=== PATIENT | female | born 1935 | race Caucasian/White ===

== ENCOUNTER → 2016-06-06 | Outpatient (CLI) | payer MEDICARE, OTHER | LOC: OD 15:33 | PROVIDERS: ATTEND Internal Medicine | DX: I50.22 Chronic systolic (congestive) heart failure (principal) | CPT/HCPCS: 36415; 71020; 83880 ==

== ENCOUNTER → 2017-05-21 | Outpatient (CLI) | payer MEDICARE, OTHER | LOC: LAB 14:46 | PROVIDERS: ATTEND Physician Assistant | DX: M25.50 Pain in unspecified joint (principal) | CPT/HCPCS: 36415; 85652; 86140; 86430 ==

== ENCOUNTER 2017-06-23 19:21 | Emergency (ER) | payer MEDICARE, OTHER ==
--- NOTE | 2017-06-23 20:43 | ER Document Report ---
ED Medical Screen (RME) - General Chief Complaint: Chest Pain Stated Complaint: FALL/LEFT ARM INJURY,CHEST PAIN Time Seen by Provider: 06/23/17 20:39 Mode of Arrival: Wheelchair Information source: Patient Notes: 81-year-old female presented ED for complaint of pain to the left wrist right hand and right knee after she fell about 615 landing on her hands and knee. There is deformity to the left wrist with swelling and severe pain. She also has swelling to the right hand and pain and bruising to the right knee. She states that she is on oxycodone 20 mg for pain management and she took one at 815 tonight and it has not helped her pain at all. I have greeted and performed a rapid initial assessment of this patient. A comprehensive ED assessment and evaluation of the patient, analysis of test results and completion of medical decision making process will be conducted by an additional ED providers. TRAVEL OUTSIDE OF THE [place] IN LAST 30 DAYS: No - Related Data Allergies/Adverse Reactions: azithromycin [Azithromycin] Allergy (Verified 02/24/15 17:26) Swelling of the Eyes levofloxacin [Levofloxacin] Allergy (Verified 02/24/15 17:26) Swelling of the Eyes Past Medical History - Past Medical History Cardiac Medical History: Reports: Hx Atrial Fibrillation, Hx Congestive Heart Failure, Hx Hypertension Neurological Medical History: Reports: Hx Cerebrovascular Accident - July 2014 GI Medical History: Reports: Hx Gastroesophageal Reflux Disease Psychiatric Medical History: Reports: Hx Depression Past Surgical History: Reports: Hx Abdominal Surgery - endometrial cancer surgery, Hx Cardiac Surgery - hole in heart, pacemakerx2, Hx Gynecologic Surgery - ectopic , Hx Hysterectomy, Hx Orthopedic Surgery - Knee replacements x3, Hx Pacemaker - Immunizations Hx Diphtheria, Pertussis, Tetanus Vaccination: Yes Physical Exam - Vital signs Vitals: Temp Pulse Resp BP Pulse Ox 97.6 F 65 14 138/61 H 95 06/23/17 19:36 06/23/17 19:36 06/23/17 19:36 06/23/17 19:36 06/23/17 19:36 Course - Vital Signs Vital signs: Temp Pulse Resp BP Pulse Ox 97.6 F 65 14 138/61 H 95 06/23/17 19:36 06/23/17 19:36 06/23/17 19:36 06/23/17 19:36 06/23/17 19:36
--- NOTE | 2017-06-23 21:21 | RADIOLOGY REPORT (SQ) ---
EXAM DESCRIPTION: HAND RIGHT 3 VIEWS COMPLETED DATE/TIME: 06/23/2017 9:05 pm REASON FOR STUDY: fall pain wrist hand and knee COMPARISON: None. EXAM PARAMETERS: NUMBER OF VIEWS: Three views. TECHNIQUE: AP, lateral and oblique radiographic images acquired of the right hand. LIMITATIONS: None. FINDINGS: MINERALIZATION: Normal. BONES: No acute fracture or dislocation. No worrisome bone lesions. JOINTS: Diffuse joint space narrowing with sclerosis and osteophytes in the interphalangeal joints as well as at the base of the thumb. SOFT TISSUES: No soft tissue swelling. No foreign body. OTHER: No other significant finding. IMPRESSION: DIFFUSE DEGENERATIVE CHANGES. NO APPARENT ACUTE FINDINGS. TECHNICAL DOCUMENTATION: JOB ID: [id number] [employer]- All Rights Reserved Reading location - IP/workstation name: [email or web address]
--- NOTE | 2017-06-23 21:24 | RADIOLOGY REPORT (SQ) ---
EXAM DESCRIPTION: WRIST LEFT 3 VIEWS COMPLETED DATE/TIME: 06/23/2017 9:05 pm REASON FOR STUDY: fall pain wrist hand and knee COMPARISON: None. NUMBER OF VIEWS: Three views. TECHNIQUE: AP, lateral, and oblique radiographic images acquired of the left wrist. LIMITATIONS: None. FINDINGS: MINERALIZATION: Normal. BONES: Avulsion fracture at the base of the ulnar styloid, probably acute. Remainder of the bony str uctures appear intact. Degenerative changes at the base of the thumb. SOFT TISSUES: Chondrocalcinosis. Soft tissue swelling. OTHER: No other significant finding. IMPRESSION: AVULSION FRACTURE AT THE BASE OF THE ULNAR STYLOID, PROBABLY ACUTE. CHRONIC DEGENERATIV E CHANGES. TECHNICAL DOCUMENTATION: JOB ID: [id number] 02/06/2011. 2010 [employer]- All Rights Reserved Reading location - IP/workstation name: [email or web address]
--- NOTE | 2017-06-23 21:25 | RADIOLOGY REPORT (SQ) ---
EXAM DESCRIPTION: KNEE LEFT 4 VIEW COMPLETED DATE/TIME: 06/23/2017 9:06 pm REASON FOR STUDY: fall pain wrist hand and knee COMPARISON: 01/28/2012. NUMBER OF VIEWS: Four views. TECHNIQUE: AP, lateral, and both oblique radiographic images acquired of the left knee. LIMITATIONS: None. FINDINGS: MINERALIZATION: Normal. BONES: Intact knee prosthesis. No acute fracture or dislocation. No worrisome bone lesions. JOINT: No effusion. SOFT TISSUES: No soft tissue swelling. No radio-opaque foreign body. OTHER: No other significant finding. IMPRESSION: INTACT KNEE PROSTHESIS. NO ACUTE FINDINGS. TECHNICAL DOCUMENTATION: JOB ID: [id number] [employer]- All Rights Reserved Reading location - IP/workstation name: [email or web address]
--- NOTE | 2017-06-23 21:44 | ER Document Report ---
ED Fall - General Chief Complaint: Fall Stated Complaint: FALL/LEFT ARM INJURY,CHEST PAIN Time Seen by Provider: 06/23/17 20:39 Mode of Arrival: Wheelchair Information source: Patient Notes: Patient is an 81-year-old female that comes emergency department for chief complaint of mechanical fall, she states she tripped over her dog, went down onto the ground on her knees and hands, she reports pain in her hands, wrists, but especially her left forearm area. She states she did not hit her head on the ground although she did brush against the ground with her head. She denies headache, neck pain, focal numbness or weakness, she is not on a blood thinner. She comes from home, lives with her family. TRAVEL OUTSIDE OF THE [place] IN LAST 30 DAYS: No - Related data Allergies/Adverse Reactions: azithromycin [Azithromycin] Allergy (Verified 02/24/15 17:26) Swelling of the Eyes levofloxacin [Levofloxacin] Allergy (Verified 02/24/15 17:26) Swelling of the Eyes Past Medical History - General Information source: Patient - Social History Smoking Status: Unknown if Ever Smoked Chew tobacco use (# tins/day): No Frequency of alcohol use: None Drug Abuse: None Family History: Reviewed & Not Pertinent Patient has suicidal ideation: No Patient has homicidal ideation: No - Past Medical History Cardiac Medical History: Reports: Hx Atrial Fibrillation, Hx Congestive Heart Failure, Hx Hypertension Neurological Medical History: Reports: Hx Cerebrovascular Accident - July 2014 Renal/ Medical History: Denies: Hx Peritoneal Dialysis GI Medical History: Reports: Hx Gastroesophageal Reflux Disease Psychiatric Medical History: Reports: Hx Depression Past Surgical History: Reports: Hx Abdominal Surgery - endometrial cancer surgery, Hx Cardiac Surgery - hole in heart, pacemakerx2, Hx Gynecologic Surgery - ectopic , Hx Hysterectomy, Hx Orthopedic Surgery - Knee replacements x3, Hx Pacemaker - Immunizations Hx Diphtheria, Pertussis, Tetanus Vaccination: Yes Hx Pneumococcal Vaccination: 03/25/14 Review of Systems - Review of Systems Constitutional: No symptoms reported EENT: No symptoms reported Cardiovascular: No symptoms reported Respiratory: No symptoms reported Gastrointestinal: No symptoms reported Genitourinary: No symptoms reported Female Genitourinary: No symptoms reported Musculoskeletal: See HPI Skin: No symptoms reported Hematologic/Lymphatic: No symptoms reported Neurological/Psychological: No symptoms reported Physical Exam - Vital signs Vitals: Temp Pulse Resp BP Pulse Ox 97.6 F 65 14 138/61 H 95 06/23/17 19:36 06/23/17 19:36 06/23/17 19:36 06/23/17 19:36 06/23/17 19:36 Interpretation: Normal - General General appearance: Appears well, Alert - HEENT Head: Normocephalic, Atraumatic Eyes: Normal Pupils: PERRL - Respiratory Respiratory status: No respiratory distress Chest status: Nontender Breath sounds: Normal Chest palpation: Normal - Cardiovascular Rhythm: Regular Heart sounds: Normal auscultation Murmur: No - Abdominal Inspection: Normal Distension: No distension Bowel sounds: Normal Tenderness: Nontender Organomegaly: No organomegaly - Back Back: Normal - Nontender midline exam - Extremities General upper extremity: Other - Tenderness with swelling over both ulnar and radial areas in the lateral forearm, there is swelling in these areas, good capillary refill and sensation, generalized tenderness over the dorsal hand otherwise, unremarkable upper extremity exam otherwise including normal elbow, shoulder exam General lower extremity: Other - Nontender over both knees, surgical scars over both knees, patient however is tender over both inguinal/hip areas - Neurological Neuro grossly intact: Yes Cognition: Normal Orientation: AAOx4 Rosemary Coma Scale Eye Opening: Spontaneous [place]mary Coma Scale Verbal: Oriented [place] Coma Scale Motor: Obeys Commands [place] Coma Scale Total: 15 Speech: Normal Motor strength normal: LUE, RUE, LLE, RLE Sensory: Normal - Psychological Associated symptoms: Normal affect, Normal mood - Skin Skin Temperature: Warm Skin Moisture: Dry Skin Color: Normal Course - Re-evaluation Re-evalutation: Patient denying any dizziness or chest pain, states she was worked up by her primary for dizziness and is being evaluated for but states that was not the reason she fell. Patient with mechanical fall, denying any head injury, she does have some pain over the hips and knees were x-rayed as well although this was normal. Patient with a fracture avulsion injury at the left ulnar styloid, this is consistent with her exam, exam also with questionable snuffbox tenderness with generalized swelling. No other traumatic abnormalities noted, workup is otherwise unremarkable. Patient put in splint, referred to orthopedics. Patient states she is relieved, declines any additional evaluation , states she will return if she has any concerning symptoms, states she will follow-up with orthopedics. Family states agreement with plan. - Vital Signs Vital signs: Temp Pulse Resp BP Pulse Ox 98.8 F 78 18 126/58 H 98 06/24/17 00:30 06/24/17 00:30 06/24/17 00:30 06/24/17 00:30 06/24/17 00:30 Procedures - Immobilization Left wrist Pre-Proc Neuro Vasc Exam: Normal Immobilizer type: Sugar tong Performed by: PCT Post-Proc Neuro Vasc Exam: Normal Alignment checked and good: Yes Discharge - Discharge Clinical Impression: Fall Qualifiers: Encounter type: initial encounter Qualified Code(s): W19.XXXA - Unspecified fall, initial encounter Knee pain Qualifiers: Chronicity: acute Laterality: bilateral Qualified Code(s): M25.561 - Pain in right knee Distal end of ulna fracture, closed Qualifiers: Encounter type: initial encounter Fracture morphology: other fracture Laterality: left Qualified Code(s): S52.692A - Other fracture of lower end of left ulna, initial encounter for closed fracture Hand pain Qualifiers: Laterality: left Qualified Code(s): M79.642 - Pain in left hand Hip pain Qualifiers: Laterality: bilateral Qualified Code(s): M25.551 - Pain in right hip Condition: Stable Disposition: HOME, SELF-CARE Additional Instructions: X-ray shows avulsion fracture of the part of your wrist and forearm: The ulna, wear the splint, follow-up with the orthopedics referral for additional evaluation and management. Remaining tests do not show any concerning abnormalities. Return if you worsen including severe pain or swelling. Referrals: RUFINO PEREZ DO [ACTIVE STAFF] - Follow up in 3-5 days
[2017-06-23] MEDS ORDERED: HYDROMORPHONE HCL INJ/PF 2 MG/ML AMPULE IM ONE (22:35)
[2017-06-23] MEDS ORDERED: MORPHINE SULFATE 10 MG/ML INJ IM ONE (22:46)
--- NOTE | 2017-06-23 23:41 | RADIOLOGY REPORT (SQ) ---
EXAM DESCRIPTION: HIP BILATERAL CLINICAL HISTORY: 81 years, Female, fall, pain COMPARISON: None. Technique: Three views. Findings: Bones, joints, and soft tissues of HIP BILATERAL appear intact. Atherosclerosis. Mild posterior throat is bilateral hips. Partially imaged left femoral intramedullary cuca. IMPRESSION: No acute findings.
[2017-06-24 00:58] VITALS: BP 126/58
--- NOTE | 2017-06-25 22:38 | EKG REPORT ---
SEVERITY:- ABNORMAL ECG - SINUS RHYTHM FIRST DEGREE AV BLOCK PROBABLE INFERIOR INFARCT, AGE INDETERMINATE : Confirmed by: Stevie Rosales 25-Jun-2017 22:37:01
== END 2017-06-24 00:30 | disposition home or self-care (01) ==
LOC: ER 19:21
PROC: 2W39X1Z Immobilization of Left Upper Extremity using Splint (ICD-10-PCS; principal; 2017-06-23)
DX: S52.692A Other fracture of lower end of left ulna, initial encounter for closed fracture (principal); M25.561 Pain in right knee; M79.642 Pain in left hand; M25.551 Pain in right hip; W01.0XXA Fall on same level from slipping, tripping and stumbling without subsequent striking against object, initial encounter; Z88.3 Allergy status to other anti-infective agents
CPT/HCPCS: 93005; 99283; 96372; 73130; 73562; 73522; 73110; 93010; 29105; J2270

== ENCOUNTER → 2017-08-22 | Outpatient (CLI) | payer MEDICARE, OTHER ==
--- NOTE | 2017-08-22 15:23 | RADIOLOGY REPORT (SQ) ---
EXAM DESCRIPTION: WRIST LEFT 2 VIEWS COMPLETED DATE/TIME: 08/22/2017 3:12 pm REASON FOR STUDY: PAIN IN LEFT WRIST M25.532 PAIN IN LEFT WRIST R22.0 LOCALIZED SWELLING, MASS AND LUMP, HEAD COMPARISON: 06/23/2017 NUMBER OF VIEWS: Three views. TECHNIQUE: AP, lateral, and oblique radiographic images acquired of the left wrist. LIMITATIONS: None. FINDINGS: MINERALIZATION: Normal. BONES: There is an old fracture of the ulnar styloid. There is now sclerosis in the distal radius. Faint lucency is seen transversely in the distal radius. SOFT TISSUES: Degenerative joint changes are seen in the articulations of the scaphoid and the trapez ium. Degenerative joint changes seen in the 1st carpometacarpal joint. OTHER: No other significant finding. IMPRESSION: 1. Degenerative joint disease. 2. The appearance of the distal radius is suggestive of a healing occult or nondisplaced fracture of the distal radius. There appears to be a fracture component involving the radial styloid as well. TECHNICAL DOCUMENTATION: JOB ID: [id number] [employer]- All Rights Reserved Reading location - IP/workstation name: [email or web address]
== END ==
LOC: RAD 14:28
PROVIDERS: ATTEND Internal Medicine
DX: M25.532 Pain in left wrist (principal); R22.1 Localized swelling, mass and lump, neck

== ENCOUNTER → 2017-08-23 | Outpatient (CLI) | payer MEDICARE, OTHER ==
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
== END ==
LOC: RAD 09:45
PROVIDERS: ATTEND Internal Medicine
DX: M25.532 Pain in left wrist (principal); R22.1 Localized swelling, mass and lump, neck
CPT/HCPCS: 70490

== ENCOUNTER 2017-08-29 12:19 | Observation (INO) | payer MEDICARE, OTHER ==
[2017-08-29] MEDS ORDERED: ASPIRIN 81 MG TABLET, CHEWABLE PO ONE (12:50)
--- NOTE | 2017-08-29 12:51 | ER Document Report ---
ED Medical Screen (RME) - General Mode of Arrival: Wheelchair Information source: Patient TRAVEL OUTSIDE OF THE [place] 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 Patient states yesterday her pain was much worse than it had been so she decided to come in today. Patient states she has had mild shortness of breath as well. I have greeted and performed a rapid initial assessment of this patient. A comprehensive ED assessment and evaluation of the patient, analysis of test results, and completion of the medical decision making process will be conducted by additional ED providers. Review of systems: Constitutional: No symptoms reported EENT: No symptoms reported Cardiovascular: Chest pain Respiratory: Shortness of breath Gastrointestinal: No symptoms reported Genitourinary: No symptoms reported Musculoskeletal: No symptoms reported Skin: No symptoms reported Hematologic/Lymphatic: No symptoms reported Neurological/Psychological: No symptoms reported Yes All other systems reviewed and negative PHYSICAL EXAM GENERAL: Alert, interacts well. No acute distress. HEAD: Normocephalic, atraumatic. EYES: Pupils equal, round, and reactive to light. Extraocular movements intact. ENT: Oral mucosa moist, tongue midline. NECK: Full range of motion. Supple. Trachea midline. LUNGS: Crackles bilaterally. No wheezing or rhonchi. No respiratory distress. HEART: Regular rate and rhythm. No murmurs, gallops, or rubs. ABDOMEN: Soft, non-tender. Non-distended. Bowel sounds present in all 4 quadrants. No guarding, rigidity, or rebound. EXTREMITIES: Moves all 4 extremities spontaneously. No edema, radial and dorsalis pedis pulses 2/4 bilaterally. No cyanosis. NEUROLOGICAL: Alert and oriented x3. Normal speech. PSYCH: Normal affect, normal mood. SKIN: Warm, dry, normal turgor. No rashes or lesions noted. (AYALA MARQUEZ) - Related Data Allergies/Adverse Reactions: azithromycin [Azithromycin] Allergy (Verified 08/29/17 12:50) Swelling of the Eyes levofloxacin [Levofloxacin] Allergy (Verified 08/29/17 12:50) Swelling of the Eyes Past Medical History - Social History Chew tobacco use (# tins/day): No Frequency of alcohol use: None Drug Abuse: None - Past Medical History Cardiac Medical History: Reports: Hx Atrial Fibrillation, Hx Congestive Heart Failure, Hx Hypertension Neurological Medical History: Reports: Hx Cerebrovascular Accident - July 2014 Renal/ Medical History: Denies: Hx Peritoneal Dialysis GI Medical History: Reports: Hx Gastroesophageal Reflux Disease Psychiatric Medical History: Reports: Hx Depression Past Surgical History: Reports: Hx Abdominal Surgery - endometrial cancer surgery, Hx Cardiac Surgery - hole in heart, pacemakerx2, Hx Gynecologic Surgery - ectopic , Hx Hysterectomy, Hx Orthopedic Surgery - Knee replacements x3, Hx Pacemaker - Immunizations Hx Diphtheria, Pertussis, Tetanus Vaccination: Yes <AYALA MARQUEZ - Last Filed: 08/29/17 15:43> - Vital signs Vitals: Temp Pulse Resp BP Pulse Ox 97.8 F 76 16 107/82 97 08/29/17 12:28 08/29/17 12:28 08/29/17 12:28 08/29/17 12:28 08/29/17 12:28 Course - Laboratory Result Diagrams: 08/29/17 13:27 08/29/17 13:27 <AYALA MARQUEZ - Last Filed: 08/29/17 15:43> - Laboratory Result Diagrams: 08/29/17 13:27 08/29/17 13:27 <LETA WINCHESTER - Last Filed: 08/29/17 21:37> - Vital Signs Vital signs: Temp Pulse Resp BP Pulse Ox 97.8 F 76 21 H 123/63 94 08/29/17 12:28 08/29/17 12:28 08/29/17 19:01 08/29/17 19:01 08/29/17 18:23 - Laboratory Laboratory results interpreted by ga: 08/29/17 08/29/17 08/29/17 13:27 13:27 17:00 Hgb 11.7 L Hct 35.7 L MCV 74 L MCH 24.3 L RDW 15.8 H BUN 22 H Calcium 11.0 H Ur Leukocyte Esterase TRACE H Doctor's Discharge <AYALA MARQUEZ - Last Filed: 08/29/17 15:43> <LETA WINCHESTER - Last Filed: 08/29/17 21:37> - Discharge Clinical Impression: Chest pain, Fatigue, Chronic a-fib Condition: Stable Scribe Documentation - Scribe Written by Tres:: Tres Taylor, 08/29/2017 1539 acting as scribe for :: Gabriel <AYALA MARQUEZ - Last Filed: 08/29/17 15:43>
--- NOTE | 2017-08-29 13:51 | RADIOLOGY REPORT (SQ) ---
EXAM DESCRIPTION: CHEST SINGLE VIEW COMPLETED DATE/TIME: 08/29/2017 1:16 pm REASON FOR STUDY: chest pain, crackles, SOB COMPARISON: 06/06/2016 EXAM PARAMETERS: NUMBER OF VIEWS: One view. TECHNIQUE: Single frontal radiographic view of the chest acquired. RADIATION DOSE: NA LIMITATIONS: None. FINDINGS: LUNGS AND PLEURA: Mild chronic interstitial changes are present. MEDIASTINUM AND HILAR STRUCTURES: No masses. Contour normal. HEART AND VASCULAR STRUCTURES: Heart normal in size. Normal vasculature. BONES: No acute findings. HARDWARE: Pacemaker. OTHER: No other significant finding. IMPRESSION: Mild chronic lung changes with no acute cardiopulmonary disease. TECHNICAL DOCUMENTATION: JOB ID: [id number] [employer]- All Rights Reserved Reading location - IP/workstation name: [email or web address]
[2017-08-29 13:52] LABS: ABSOLUTE EOSINOPHILS # (AUTO) 0.2 10^3/uL (0.0-0.6); ABSOLUTE LYMPHOCYTES (AUTO) 1.7 10^3/uL (0.5-4.7); ABSOLUTE MONOCYTES (AUTO) 0.5 10^3/uL (0.1-1.4); ABSOLUTE NEUT (AUTO) 4.3 10^3/uL (1.7-8.2); BASOPHILS % (AUTO) 0.7 % (0-2); EOSINOPHILS % (AUTO) 2.4 % (0-6); HEMATOCRIT 35.7 % (36.0-47.0); HEMOGLOBIN 11.7 g/dL (12.0-15.5); LYMPHOCYTES % (AUTO) 25.7 % (13-45); MEAN CORPUSCULAR HEMOGLOBIN 24.3 pg (27.0-33.4); MEAN CORPUSCULAR HGB CONC 32.8 g/dL (32.0-36.0); MEAN CORPUSCULAR VOLUME 74 fl (80-97); MONOCYTES % (AUTO) 6.9 % (3-13); PLATELET COUNT 169 10^3/uL (150-450); RED BLOOD COUNT 4.82 10^6/uL (3.72-5.28); RED CELL DISTRIBUTION WIDTH 15.8 % (11.5-14.0); SEGMENTED NEUTROPHILS % (AUTO) 64.3 % (42-78); TOTAL CELLS COUNTED % (AUTO) 100 %; WHITE BLOOD COUNT 6.7 10^3/uL (4.0-10.5)
[2017-08-29 14:20] LABS: ALANINE AMINOTRANSFERASE 21 U/L (9-52); ALBUMIN 3.8 g/dL (3.5-5.0); ALKALINE PHOSPHATASE 94 U/L (38-126); ANION GAP 9 (5-19); ASPARTATE AMINO TRANSFERASE 21 U/L (14-36); BILIRUBIN,DIRECT 0.2 mg/dL (0.0-0.4); BILIRUBIN,TOTAL 0.2 mg/dL (0.2-1.3); BLOOD UREA NITROGEN 22 mg/dL (7-20); CARBON DIOXIDE 26 mmol/L (22-30); CHLORIDE 104 mmol/L (98-107); CREATINE KINASE 70 U/L (30-135); GLUCOSE 92 mg/dL (75-110); POTASSIUM 4.3 mmol/L (3.6-5.0); SODIUM 138.7 mmol/L (137-145); TOTAL PROTEIN 6.5 g/dL (6.3-8.2)
[2017-08-29 14:31] LABS: CREATINE KINASE MB 0.57 ng/mL (<4.55); NT PRO BNP 224 pg/mL (<450)
[2017-08-29 14:33] LABS: TROPONIN I < 0.012 ng/mL
--- NOTE | 2017-08-29 15:32 | ER Document Report ---
ED Cardiac - General Chief Complaint: Chest Pain Stated Complaint: CHEST PAIN Time Seen by Provider: 08/29/17 12:49 Mode of Arrival: Ambulatory Information source: Patient Notes: 81 yo non smoker, no etoh, no drugs, female c/o 5 days of increased fatique, no energy, falling asleep, dull-increases exhaustion-lasts less than 10 minutes in left upper chest pain-occurs either resting or exertional, generalized "feeling like crap", vomiting, SOB with exertion, diarrhea. No fever- but has hot and cold spells. Yesterday: wanted to leave [place] bc she felt real bad, tired, trouble swallowing gingerale.. She is unsure if this is heart or esophogus. PMH : stroke, [place], reflux esophogitis-. pacemaker, 3 knee replacements. arthritis, Cath 2015-negative. Meds. Eliquis, oxycodone 20mg qid, PCP: Dr. ventura. dull Chest pain this morning with nausea and layed on sofa at 8 am, lasted 30minutes. No pain now. 2 NTG relieved the pain this morning. TRAVEL OUTSIDE OF THE [place] IN LAST 30 DAYS: No - Related Data Allergies/Adverse Reactions: azithromycin [Azithromycin] Allergy (Verified 08/29/17 12:50) Swelling of the Eyes levofloxacin [Levofloxacin] Allergy (Verified 08/29/17 12:50) Swelling of the Eyes Past Medical History - General Information source: Patient - Social History Smoking Status: Former Smoker Chew tobacco use (# tins/day): No Frequency of alcohol use: None Drug Abuse: None Lives with: Spouse/Significant other Family History: Reviewed & Not Pertinent Patient has suicidal ideation: No Patient has homicidal ideation: No - Past Medical History Cardiac Medical History: Reports: Hx Atrial Fibrillation, Hx Congestive Heart Failure, Hx Hypertension Neurological Medical History: Reports: Hx Cerebrovascular Accident - July 2014 Renal/ Medical History: Denies: Hx Peritoneal Dialysis GI Medical History: Reports: Hx Gastroesophageal Reflux Disease Psychiatric Medical History: Reports: Hx Depression Past Surgical History: Reports: Hx Abdominal Surgery - endometrial cancer surgery, Hx Cardiac Surgery - hole in heart, pacemakerx2, Hx Gynecologic Surgery - ectopic , Hx Hysterectomy, Hx Orthopedic Surgery - Knee replacements x3, Hx Pacemaker - Immunizations Hx Diphtheria, Pertussis, Tetanus Vaccination: Yes Hx Pneumococcal Vaccination: 03/25/14 Review of Systems - Review of Systems Constitutional: No symptoms reported EENT: No symptoms reported Cardiovascular: See HPI Respiratory: No symptoms reported Gastrointestinal: See HPI Genitourinary: No symptoms reported Female Genitourinary: No symptoms reported Musculoskeletal: No symptoms reported Skin: No symptoms reported Hematologic/Lymphatic: No symptoms reported Neurological/Psychological: No symptoms reported Physical Exam - Vital signs Vitals: Temp Pulse Resp BP Pulse Ox 97.8 F 76 16 107/82 97 08/29/17 12:28 08/29/17 12:28 08/29/17 12:28 08/29/17 12:28 08/29/17 12:28 Interpretation: Normal - General General appearance: Appears well, Alert, Anxious - HEENT Head: Normocephalic, Atraumatic Eyes: Normal Conjunctiva: Normal Pupils: PERRL Mucous membranes: Normal Neck: Supple. No: Lymphadenopathy - Respiratory Respiratory status: No respiratory distress Chest status: Nontender Breath sounds: Normal Chest palpation: Normal - Cardiovascular Rhythm: Regular Heart sounds: Normal auscultation Murmur: No - Abdominal Inspection: Normal Distension: No distension Bowel sounds: Normal Tenderness: Nontender. No: Tender Organomegaly: No organomegaly - Back Back: Normal, Nontender. No: CVA tenderness - Extremities General upper extremity: Normal inspection, Nontender, Normal color, Normal ROM , Normal temperature General lower extremity: Normal inspection, Nontender, Normal color, Normal ROM , Normal temperature, Normal weight bearing. No: Dl's sign - Neurological Neuro grossly intact: Yes Cognition: Normal Orientation: AAOx4 Rosemary Coma Scale Eye Opening: Spontaneous Rosemary Coma Scale Verbal: Oriented Hamilton Coma Scale Motor: Obeys Commands Hamilton Coma Scale Total: 15 Speech: Normal Motor strength normal: LUE, RUE, LLE, RLE Sensory: Normal - Psychological Associated symptoms: Normal affect, Normal mood - Skin Skin Temperature: Warm Skin Moisture: Dry Skin Color: Normal Skin irregularity: negative: Rash Course - Re-evaluation Re-evalutation: 08/29/17 16:09 Dr. Ventura will admit to [facility] - Vital Signs Vital signs: Temp Pulse Resp BP Pulse Ox 97.7 F 60 16 93/41 L 100 08/30/17 17:51 08/30/17 17:51 08/30/17 17:51 08/30/17 17:51 08/30/17 17:51 - Laboratory Result Diagrams: 08/29/17 13:27 08/29/17 13:27 Laboratory results interpreted by me: 08/29/17 08/29/17 08/29/17 13:27 13:27 17:00 Hgb 11.7 L Hct 35.7 L MCV 74 L MCH 24.3 L RDW 15.8 H BUN 22 H Calcium 11.0 H Ur Leukocyte Esterase TRACE H Discharge - Discharge Clinical Impression: Chronic a-fib Chest pain Qualifiers: Chest pain type: other chest pain Qualified Code(s): R07.89 - Other chest pain Fatigue Qualifiers: Fatigue type: unspecified Qualified Code(s): R53.83 - Other fatigue Condition: Stable Admitting Provider: Diana Unit Admitted: TIO
[2017-08-29 17:41] LABS: APPEARANCE,URINE CLEAR; BILIRUBIN,URINE NEGATIVE (NEGATIVE); COLOR,URINE YELLOW; GLUCOSE, URINE NEGATIVE (NEGATIVE); KETONES,URINE NEGATIVE (NEGATIVE); LEUKOCYTE ESTERASE,URINE TRACE (NEGATIVE); NITRITE,URINE NEGATIVE (NEGATIVE); PROTEIN,URINE NEGATIVE (NEGATIVE); URINE SPECIFIC GRAVITY 1.013; UROBILINOGEN,URINE NEGATIVE mg/dL (<2.0)
[2017-08-29] MEDS ORDERED: OXYCODONE HCL IR 5 MG TABLET PO PRN (17:55)
[2017-08-29] MEDS ORDERED: (PENDING PHARMACY ID) (Gabapentin Enacarbil [Horizant] 600 MG) PO SCH (18:00)
[2017-08-29] MEDS: OXYCODONE HCL SR 10 MG TABLET PO SCH (18:23)
[2017-08-29] MEDS ORDERED: LEVOTHYROXINE SODIUM 0.05 MG TABLET PO ONE (18:30)
[2017-08-29] MEDS ORDERED: LISINOPRIL 10 MG TABLET PO ONE (18:30)
[2017-08-29] MEDS ORDERED: ENOXAPARIN SODIUM INJ 40 MG/0.4 ML DISP.SYRIN SUBCUT ONE (18:30)
[2017-08-29] MEDS ORDERED: LANSOPRAZOLE 30 MG TAB.RAP.DR PO ONE (18:45)
[2017-08-29 18:46] LABS: TROPONIN I < 0.012 ng/mL
[2017-08-29 19:44] LABS: CREATINE KINASE MB 1.15 ng/mL (<4.55)
[2017-08-29] MEDS ORDERED: ASPIRIN 81 MG TABLET, CHEWABLE PO SCH (22:00)
--- NOTE | 2017-08-29 22:55 | EKG REPORT ---
SEVERITY:- ABNORMAL ECG - ATRIAL FIBRILLATION ABERRANT COMPLEX PROBABLE INFERIOR INFARCT, AGE INDETERMINATE : Confirmed by: Edelmira Zabala MD 29-Aug-2017 22:54:44
[2017-08-30 01:10] LABS: CREATINE KINASE MB 1.41 ng/mL (<4.55)
[2017-08-30 01:12] LABS: TROPONIN I < 0.012 ng/mL
[2017-08-30] MEDS: OXYCODONE HCL SR 10 MG TABLET PO SCH ×2 (05:44→17:07)
[2017-08-30 06:58] LABS: CREATINE KINASE MB 1.27 ng/mL (<4.55)
[2017-08-30 06:59] LABS: TROPONIN I < 0.012 ng/mL
[2017-08-30] MEDS ORDERED: LEVOTHYROXINE SODIUM 0.05 MG TABLET PO SCH (08:00)
[2017-08-30] MEDS ORDERED: LISINOPRIL 10 MG TABLET PO SCH (10:00)
[2017-08-30] MEDS ORDERED: LANSOPRAZOLE 30 MG TAB.RAP.DR PO SCH (10:00)
[2017-08-30] MEDS ORDERED: ENOXAPARIN SODIUM INJ 40 MG/0.4 ML DISP.SYRIN SUBCUT SCH (10:00)
[2017-08-30 12:27] VITALS: BP 93/41
--- NOTE | 2017-08-30 20:30 | PDOC H&P ---
History of Present Illness Admission Date/PCP: 08/29/17 17:10 FRANCISCO JAVIER HARVEY MD History of Present Illness: NAREN SULLIVAN is a 81 year old female, She has a history of esophageal stricture she had episode of dysphagia with chest pain she was convinced the chest pain is GI related she called the GI physician that was following her disease process he advised that she probably need to go to ER to make sure there is no cardiac cause for the chest pain she was experiencing ,she came to the emergency room for evaluation, in the emergency room she was evaluated the initial blood work was negative for any acute [place] the EKG shows sinus rhythm, with no acute ST T-wave deviation. The nurse practitioner that saw her in the ER want her admitted to rule out acute coronary syndrome though extremely unlikely in this patient, the pretest probability for ischemic heart disease is extremely low she was brought in for observation. 3 Set of enzymes were negative for acute [place]. Past Medical History Cardiac Medical History: Reports: Atrial Fibrillation, Congestive Heart Failure , Hypertension GI Medical History: Reports: Gastroesophageal Reflux Disease Psychiatric Medical History: Reports: Depression Past Surgical History Past Surgical History: Reports: Hysterectomy, Orthopedic Surgery - Knee replacements x3, Pacemaker Social History Lives with: Spouse/Significant other Smoking Status: Former Smoker Frequency of Alcohol Use: None Hx Recreational Drug Use: No Drugs: None Hx Prescription Drug Abuse: No Family History Family History: Reviewed & Not Pertinent Parental Family History Reviewed: Yes Children Family History Reviewed: Yes Sibling(s) Family History Reviewed.: Yes Medication/Allergy Home Medications: Gabapentin Enacarbil [Horizant] 600 mg PO Q12 08/29/17 Levothyroxine Sodium [Synthroid 0.05 mg Tablet] 0.05 mg PO DAILY 08/29/17 Lisinopril [Prinivil 10 mg Tablet] 10 mg PO DAILY 08/29/17 Omeprazole 40 mg PO DAILY 08/29/17 Oxycodone HCl [Oxy-Ir 5 mg Tablet] 20 mg PO QIDP PRN 08/29/17 Oxycodone HCl [Oxycontin] 20 mg PO Q12 08/29/17 Allergies/Adverse Reactions: azithromycin [Azithromycin] Allergy (Verified 08/29/17 12:50) Swelling of the Eyes levofloxacin [Levofloxacin] Allergy (Verified 08/29/17 12:50) Swelling of the Eyes Review of Systems Constitutional: ABSENT: chills, fever(s), headache(s), weight gain, weight loss Eyes: ABSENT: visual disturbances Ears: ABSENT: hearing changes Cardiovascular: PRESENT: chest pain. ABSENT: dyspnea on exertion, edema, orthropnea, palpitations Respiratory: ABSENT: cough, hemoptysis Gastrointestinal: PRESENT: dysphagia. ABSENT: abdominal pain, constipation, diarrhea, hematemesis, hematochezia, nausea, vomiting Genitourinary: ABSENT: dysuria, hematuria Musculoskeletal: ABSENT: joint swelling Integumentary: ABSENT: rash, wounds Neurological: ABSENT: abnormal gait, abnormal speech, confusion, dizziness, focal weakness, syncope Psychiatric: ABSENT: anxiety, depression, homidical ideation, suicidal ideation Endocrine: ABSENT: cold intolerance, heat intolerance, menstrual abnormalities, polydipsia, polyuria Hematologic/Lymphatic: ABSENT: easy bleeding, easy bruising, lymphadenopathy Physical Exam Vital Signs: Temp Pulse Resp BP Pulse Ox 97.7 F 60 16 93/41 L 100 08/30/17 17:51 08/30/17 17:51 08/30/17 17:51 08/30/17 17:51 08/30/17 17:51 Intake & Output 08/29/17 08/30/17 08/31/17 06:59 06:59 06:59 Intake Total 200 568 Balance 200 568 Weight 65 kg General appearance: PRESENT: no acute distress, well-developed, well-nourished Head exam: PRESENT: atraumatic, normocephalic Eye exam: PRESENT: conjunctiva pink, EOMI, PERRLA Ear exam: PRESENT: normal external ear exam Mouth exam: PRESENT: moist, tongue midline Neck exam: PRESENT: full ROM Respiratory exam: PRESENT: clear to auscultation ana Cardiovascular exam: PRESENT: RRR, +S1, +S2 Pulses: PRESENT: normal dorsalis pedis pul, +2 pedal pulses bilateral Vascular exam: PRESENT: normal capillary refill GI/Abdominal exam: PRESENT: normal bowel sounds, soft Rectal exam: PRESENT: deferred Neurological exam: PRESENT: alert, awake, oriented to person, oriented to place , oriented to time, oriented to situation, CN II-XII grossly intact Psychiatric exam: PRESENT: appropriate affect, normal mood Skin exam: PRESENT: dry, intact, warm Results Laboratory Results: 08/29/17 08/29/17 08/29/17 18:00 18:00 18:00 Creatine Kinase 66 CK-MB (CK-2) 1.15 Cancelled Troponin I < 0.012 Cancelled 08/30/17 08/30/17 08/30/17 00:32 00:32 06:04 Creatine Kinase 70 61 CK-MB (CK-2) 1.41 Troponin I < 0.012 08/30/17 06:04 Creatine Kinase CK-MB (CK-2) 1.27 Troponin I < 0.012 Impressions: Chest X-Ray 08/29/17 12:50 IMPRESSION: Mild chronic lung changes with no acute cardiopulmonary disease. Assessment & Plan - Diagnosis (1) Chest pain Qualifiers: Chest pain type: other chest pain Qualified Code(s): R07.89 - Other chest pain; R07.8 - Other chest pain Is this a current diagnosis for this admission?: Yes Plan: She is admitted for management
== END 2017-08-30 18:25 | disposition home or self-care (01) ==
LOC: ER 12:19 → EH 17:10 → INTOOBSV 17:10 → 3W 20:51
PROVIDERS: ADMIT Internal Medicine; ATTEND Internal Medicine
DX: R07.89 Other chest pain (principal); I48.2 Chronic atrial fibrillation; R53.83 Other fatigue; R13.10 Dysphagia, unspecified; K21.9 Gastro-esophageal reflux disease without esophagitis; I51.81 Takotsubo syndrome; R06.02 Shortness of breath; I10 Essential (primary) hypertension; Z87.891 Personal history of nicotine dependence; Z79.899 Other long term (current) drug therapy; Z95.0 Presence of cardiac pacemaker; Z90.710 Acquired absence of both cervix and uterus; Z86.73 Personal history of transient ischemic attack (TIA), and cerebral infarction without residual deficits; Z85.89 Personal history of malignant neoplasm of other organs and systems; Z98.890 Other specified postprocedural states
CPT/HCPCS: 93005; 99285; 36415 ×2; 87086; 82553 ×2; 82550 ×2; 83690; 85025; 87088; 80053; 81001; 84484 ×2; 87186; 83880; 71045; 93010; G0378 ×3; A9270 ×9; J1650; J3490 ×2

== ENCOUNTER → 2018-04-10 | Outpatient (CLI) | payer MEDICARE, OTHER ==
--- NOTE | 2018-04-10 13:04 | RADIOLOGY REPORT (SQ) ---
EXAM DESCRIPTION: NM PARATHYROID IMAGING COMPLETED DATE/TIME: 04/10/2018 12:33 pm REASON FOR STUDY: PRIMARY HYPERPARATHYROIDISM (E21.0) E21.0 PRIMARY HYPERPARATHYROIDISM COMPARISON: CT soft tissue neck 08/23/2017 RADIONUCLIDE AND DOSE: 20 millicuries Tc-99m Sestamibi. The route of agent administration: Intravenous ADDITIONAL DRUGS AND DOSES: None. TECHNIQUE: Early and delayed images of the neck acquired following radionuclide administration. LIMITATIONS: None. FINDINGS: Thyroid: Normal size. Homogeneous activity. Normal washout. No focal lesions. Parathyroid: There is retained activity overlying lower pole right lobe of the thyroid gland suspicio us for parathyroid adenoma. Other: No other significant findings. IMPRESSION: Parathyroid adenoma overlying lower pole right lobe of the thyroid gland. TECHNICAL DOCUMENTATION: JOB ID: [id number] [employer]- All Rights Reserved Reading location - IP/workstation name: [email or web address]
== END ==
LOC: RAD 08:16
PROVIDERS: ATTEND Internal Medicine
DX: E21.0 Primary hyperparathyroidism (principal)
CPT/HCPCS: 78070; A9500; Q9969

== ENCOUNTER → 2018-05-23 | Outpatient (CLI) | payer MEDICARE, OTHER ==
[2018-05-23 15:59] LABS: ANION GAP 8 (5-19); BLOOD UREA NITROGEN 19 mg/dL (7-20); CALCIUM 11.6 mg/dL (8.4-10.2); CARBON DIOXIDE 29 mmol/L (22-30); CHLORIDE 104 mmol/L (98-107); GLUCOSE 93 mg/dL (75-110); POTASSIUM 3.9 mmol/L (3.6-5.0); SODIUM 141.2 mmol/L (137-145)
== END ==
LOC: OD 15:12
PROVIDERS: ATTEND Surgery
DX: E21.0 Primary hyperparathyroidism (principal); K22.0 Achalasia of cardia; K21.0 Gastro-esophageal reflux disease with esophagitis; E83.52 Hypercalcemia
CPT/HCPCS: 36415; 80048; 82306; 83970

== ENCOUNTER 2018-07-09 07:44 | Day surgery (SDC) | payer MEDICARE, OTHER ==
[2018-07-07 13:09] LABS: HEMOGLOBIN 13.6 g/dL (12.0-15.5); MEAN CORPUSCULAR HEMOGLOBIN 28.6 pg (27.0-33.4); MEAN CORPUSCULAR HGB CONC 34.1 g/dL (32.0-36.0); MEAN CORPUSCULAR VOLUME 84 fl (80-97); PLATELET COUNT 219 10^3/uL (150-450); RED BLOOD COUNT 4.78 10^6/uL (3.72-5.28); RED CELL DISTRIBUTION WIDTH 14.4 % (11.5-14.0); WHITE BLOOD COUNT 8.3 10^3/uL (4.0-10.5)
[2018-07-07 13:33] LABS: ANION GAP 6 (5-19); BLOOD UREA NITROGEN 29 mg/dL (7-20); CALCIUM 11.7 mg/dL (8.4-10.2); CARBON DIOXIDE 32 mmol/L (22-30); CHLORIDE 99 mmol/L (98-107); GLUCOSE 92 mg/dL (75-110); POTASSIUM 4.2 mmol/L (3.6-5.0); SODIUM 137.2 mmol/L (137-145)
[~2018-07-09 07:44] MED LIST: CEFAZOLIN 1 GM/D5W RTU 1 GM/50 ML RTUPB IV PRN; LACTATED RINGERS 1000 ML IV PRN; LIDOCAINE 0.5% INJ-PF (5 MG/ML) 50 ML SDV SUBCUT PRN
--- NOTE | 2018-07-09 08:29 | EKG REPORT ---
SEVERITY:- ABNORMAL ECG - ATRIAL-SENSED VENTRICULAR-PACED COMPLEXES PROBABLE LEFT ATRIAL ABNORMALITY LEFT BUNDLE BRANCH BLOCK : Confirmed by: Edelmira Zabala MD 09-Jul-2018 08:29:15
[2018-07-09 08:49] LABS: INTERNATIONAL RATION (INR) 1.04; PROTHROMBIN TIME 14.1 SEC (11.4-15.4)
[2018-07-09 08:50] LABS: PARTIAL THROMBOPLASTIN TIME 38.2 SEC (23.5-35.8)
[2018-07-09] MEDS ORDERED: CEFAZOLIN 1 GM/D5W RTU 1 GM/50 ML RTUPB IV ONE (09:00)
[2018-07-09] MEDS ORDERED: ROCURONIUM BROMIDE INJ 50 MG/5 ML VIAL IV ONE (10:28)
[2018-07-09] MEDS ORDERED: GLYCOPYRROLATE 1 MG/5 ML SYRINGE ONE (10:28)
[2018-07-09] MEDS ORDERED: SUCCINYLCHOLINE CHLORIDE INJ 200 MG/10 ML VIAL ONE (10:28)
[2018-07-09] MEDS ORDERED: NEOSTIGMINE METHYLSULFATE 10 MG/10 ML VIAL ONE (10:28)
[2018-07-09] MEDS ORDERED: DEXAMETHASONE SOD PHOSPHATE INJ 4 MG/1 ML VIAL ONE (10:28)
[2018-07-09] MEDS ORDERED: LIDOCAINE 2% INJ-PF (20 MG/ML) 2 ML AMPUL ONE (10:28)
[2018-07-09] MEDS ORDERED: FENTANYL CITRATE INJ/PF 250 MCG/5 ML AMPULE ONE (10:39)
[2018-07-09] MEDS ORDERED: MIDAZOLAM 2 MG/2 ML INJ ONE (10:39)
[2018-07-09] MEDS ORDERED: PROPOFOL INJ 200 MG/20 ML VIAL IV ONE (10:40)
[2018-07-09] MEDS ORDERED: ACETAMINOPHEN 1,000 MG/100 ML RTUPB IV ONE (10:40)
[2018-07-09] MEDS ORDERED: MICROFIBRILLAR COLLAGEN 1 GM PACK ONE (11:01)
[2018-07-09] MEDS ORDERED: MEPERIDINE HCL/PF INJ 25 MG/1 ML DISP.SYRIN IV PRN (11:22)
[2018-07-09] MEDS ORDERED: PROMETHAZINE HCL INJ 25 MG/1 ML VIAL IV PRN ×2 (11:22)
[2018-07-09] MEDS ORDERED: FENTANYL CITRATE INJ/PF 100 MCG/2 ML AMPUL IV PRN ×3 (11:22)
[2018-07-09] MEDS ORDERED: DIPHENHYDRAMINE HCL 50 MG/ML VIAL IV PRN (11:22)
[2018-07-09] MEDS ORDERED: OXYCODONE-ACETAMINOPHEN 5-325 MG TABLET PO PRN ×2 (11:22)
[2018-07-09] MEDS ORDERED: BUPIVACAINE HCL 0.25 % INJ/PF (2.5 MG/1 ML) 30 ML VIAL ONE (11:26)
--- NOTE | 2018-07-09 13:40 | Operative Report ---
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 Arms were tucked, neck extended, elevated with a roll, and the neck prepped and draped in sterile fashion. Surgical plan and surgical timeout were conducted. Specifically the patient had a history of hypercalcemia, and hyperparathyroidism. She had a preoperative sestamibi scan which localized an area of increased activity to the right lower neck consistent with parathyroid adenoma. Preoperative ultrasonography by Dr. Gan identified a right lower neck 1-1-1/2 cm density consistent with a parathyroid adenoma just adjacent to the inferior pole of the right thyroid lob e. The patient was felt to be an appropriate candidate for focused right lower neck exploration and parathyroidectomy. Markings were made on the skin for standard transcervical incision. The neck w as opened through a cervical incision approximately 5-1/2 cm in length approximately 2 fingerbreadths above the sternal notch. Skin and platysma flaps were raised superiorly and inferiorly. Strap muscles were divided in midline. The right strap muscles were elevated off of the anterior surface of the right thyroid lobe uneventfully. The right middle thyroid vein was divided between clips. Using intraoperative ultrasonography, we identified an area in the right lower neck, between the trachea, and the artery that was oblong shaped flat approximately 1/2 cm diameter. This was our target tissue. We the inferior pole of the thyroid gland from the deep cervical fascia. Between the cervical fascia inferiorly was a small nodular mass, surrounded by fatty tissue. It was opened up gingerly with hemostats, and found to have tissue consistent with a parathyroid gland. It was small, typical size gland approximately. We did not feel this represented the target gland. Further exploration in the area revealed a lymph node which was somewhat enlarged, but did not appear pathologic. It was not removed. Again using ultrasonography, we felt that the tissue was somewhat more cephalad now possibly as a result of tissue planes opening up during the dissection. The carotid artery was identified and left out of harm's way to the lateral aspect of the dissection. We did see the recurrent laryngeal nerve at this point, and the inferior thyroid artery. Just deep to this area was a question of fatty tissue. This was explored and in fact within it revealed what appeared to be the target parathyroid gland. Using hemostats, we dissected out a proximally 1.5cm, chocolate colored parathyroid adenoma. In fact it is inferior most aspect was free and its superior aspect was attached to the vascular pedicle. As we dissected it free in a very careful fashion it was apparent that the parathyroid adenoma was very likely the right upper parathyroid gland that had descended down beneath the inferior thyroid artery and current laryngeal nerve. Therefore those 2 structures were elevated cephalad and the remaining attachments between the parathyroid adenoma, and the vasculature were divided between clips. The specimen was taken personally by Dr. Gan to the pathology lab where he was examined by frozen section by Dr. Kauffman. It was approximately 1.5 cm in length, 500 mg in weight and appeared to be hypercellular on histologic analysis. In addition we performed intraoperative PTH level check, with blood drawn approximately 12 minutes after the putative adenoma was removed. Preoperatively the PTH level was 149, and the intraoperative level was 28. We therefore felt that the operation was successful meeting the appropriate criteria for reduction in PTH level. We checked the recesses of the right neck for any bleeding and there was only a minimal venous ooze coming from the exposed right inferior parathyroid gland. We left it as is. Avitene gel was placed in the cavity of the neck, and neck closed in layers including strap muscles and platysma with 2-0 and 3-0 Vicryl. Skin closed with Dermabond glue. Patient tolerated procedure well, extubated, and taken recovery in stable condition. The physician assistant hall director, Ms. Hood, provided assistance during this case by: Assisting with retracting tissue, instillation of local anesthesia and closure of skin incisions.
[2018-07-09] MEDS ORDERED: POLYVINYL ALCOHOL 1.4% OPH SOLN 15 ML OS PRN (15:26)
[2018-07-09] MEDS: DOCUSATE SODIUM 100 MG CAPSULE PO SCH ×2 (17:12→17:16)
[2018-07-09] MEDS: ACETAMINOPHEN 1,000 MG/100 ML RTUPB IV SCH ×2 (17:12→23:02)
[2018-07-09] MEDS ORDERED: ACETAMINOPHEN INJ/PF 1000 MG/100 ML SDV IV SCH (18:00)
[2018-07-09] MEDS: KETOROLAC TROMETHAMINE 10 MG TABLET PO PRN (20:51)
[2018-07-09] MEDS ORDERED: PRILOCAINE TOP PRN (21:10)
[2018-07-09] MEDS ORDERED: LIDOCAINE TOP PRN (21:10)
[2018-07-09] MEDS ORDERED: CHLORPHENIRAMINE MALEATE 4 MG TABLET PO PRN (21:10)
[2018-07-09] MEDS ORDERED: TRAMADOL HCL 50 MG TABLET PO PRN (21:10)
[2018-07-09 21:21] LABS: ALBUMIN 3.3 g/dL (3.5-5.0); CALCIUM 10.4 mg/dL (8.4-10.2)
[2018-07-09] MEDS ORDERED: GABAPENTIN 300 MG CAPSULE PO SCH (22:00)
[2018-07-09] MEDS: BACITRACIN OPH OINT 3.5 GM OS SCH (22:05)
[2018-07-10] MEDS ORDERED: LEVOTHYROXINE SODIUM 0.05 MG TABLET PO SCH (06:00)
[2018-07-10 06:05] LABS: ALBUMIN 3.3 g/dL (3.5-5.0); CALCIUM 10.2 mg/dL (8.4-10.2)
[2018-07-10] MEDS: ACETAMINOPHEN 1,000 MG/100 ML RTUPB IV SCH (06:19)
[2018-07-10] MEDS: KETOROLAC TROMETHAMINE 10 MG TABLET PO PRN (06:22)
[2018-07-10 06:48] VITALS: BP 133/61
[2018-07-10] MEDS ORDERED: APIXABAN 2.5 MG TABLET PO SCH ×2 (10:00)
[2018-07-10] MEDS ORDERED: PANTOPRAZOLE SODIUM 40 MG TABLET.DR PO SCH (10:00)
[2018-07-10] MEDS ORDERED: FUROSEMIDE 40 MG TABLET PO SCH (10:00)
[2018-07-10] MEDS ORDERED: MEGESTROL ACETATE 20 MG TABLET PO SCH (10:00)
[2018-07-10] MEDS ORDERED: (PENDING PHARMACY ID) (Megestrol Acetate [Megestrol Acetate] 40 MG) PO SCH (10:00)
[2018-07-10] MEDS ORDERED: LISINOPRIL 10 MG TABLET PO SCH (10:00)
--- NOTE | 2018-07-10 10:47 | DISCHARGE SUMMARY E ---
Discharge Summary NAME: NAREN SULLIVAN : 1935 AGE: 82Y ADMITTED: 07/09/2018 DISCHARGED: 07/10/2018 REASON FOR ADMISSION: PARATHYROIDECTOMY SUMMARY OF HOSPITALIZATION: The patient is an 82-year-old white female with a history of hypercalcemia and hyperparathyroidism who was found to have on preoperative assessment imaging and ultrasonography an area of increased activity and a density consistent with a parathyroid adenoma in the right lower neck. She was brought to ambulatory surgery for right parathyroidectomy. SUMMARY OF PROCEDURE: The patient was taken to the operating room where she underwent neck exploration, with parathyroidectomy of a right parathyroid adenoma. Although it was in the right lower neck it descended from the right upper parathyroid gland. The right lower parathyroid gland was identified during the dissection, and preserved. Patient's preoperative PTH level was 149, and 10 minutes post adenoma resection was 28.6. It was removed uneventfully. The patient tolerated the operation well. In the recovery room she had left eye pain and decreased vision. She was seen on the floor by Dr. Zach Amor, ampoule filler and sealer, who recommended eye drops and felt the patient had sustained a mild keratitis. Postoperatively the patient's calcium levels came down from 11.7 to 10.4 and on the morning of 07/10/2018 at 10.2. The patient was felt to receive maximum benefit from hospitalization the following morning. Her neck looked good and her voice was only minimally scratchy. She was prepared to go home. FINAL DIAGNOSIS: 1. Hyperparathyroidism secondary to right neck parathyroid adenoma status post neck exploration with subparathyroidectomy. 2. Mild postoperative left eye keratitis. DISPOSITION: The patient may discharge home today, obtain a calcium level tomorrow with results. Call Dr. Gan. She will follow up with Dr. Gan in [facility] in 1 weeks, and Dr. Flannery, her ampoule filler and sealer next week. We have given her a prescription for bacitracin ophthalmic solution. She will resume her preoperative medications, diet, and activity. DICTATING PHYSICIAN: HANANE GAN M.D. [id number] PHY#: [id number] ID: [id number] JOB#: [id number] ACCT: [id number] cc:HANANE GAN M.D. > MTDD
[2018-07-10] MEDS: DOCUSATE SODIUM 100 MG CAPSULE PO SCH (12:02)
[2018-07-10] MEDS: BACITRACIN OPH OINT 3.5 GM OS SCH (12:05)
[2018-07-10] MEDS ORDERED: MONTELUKAST SODIUM 10 MG TABLET PO SCH (18:00)
== END 2018-07-10 12:50 | disposition home or self-care (01) ==
LOC: OROUT 07:44 → 4W 15:47 → OROUT 07-10 12:50
PROVIDERS: ATTEND Surgery
DX: E21.1 Secondary hyperparathyroidism, not elsewhere classified (principal); D35.1 Benign neoplasm of parathyroid gland; H59.89 Other postprocedural complications and disorders of eye and adnexa, not elsewhere classified; H16.8 Other keratitis; Y84.8 Other medical procedures as the cause of abnormal reaction of the patient, or of later complication, without mention of misadventure at the time of the procedure; Y92.530 Ambulatory surgery center as the place of occurrence of the external cause; E78.5 Hyperlipidemia, unspecified; Q21.1 Atrial septal defect; I48.91 Unspecified atrial fibrillation; I42.9 Cardiomyopathy, unspecified; E03.9 Hypothyroidism, unspecified; I20.9 Angina pectoris, unspecified; R00.1 Bradycardia, unspecified; D64.9 Anemia, unspecified; Z86.73 Personal history of transient ischemic attack (TIA), and cerebral infarction without residual deficits; Z95.0 Presence of cardiac pacemaker; Z87.891 Personal history of nicotine dependence; Z79.899 Other long term (current) drug therapy; Z01.818 Encounter for other preprocedural examination; Z79.01 Long term (current) use of anticoagulants
CPT/HCPCS: 320; 36415; 80048; 82040; 82310; 83970; 85027; 85610; 85730; 88305; 88331; 93005; 93010; J0131; J0330; J0690; J1100; J2250; J2704; J3010; J3490

== ENCOUNTER → 2018-07-11 | Outpatient (CLI) | payer MEDICARE, OTHER | LOC: LAB 13:02 | PROVIDERS: ATTEND Surgery | DX: E89.2 Postprocedural hypoparathyroidism (principal); E83.52 Hypercalcemia | CPT/HCPCS: 36415; 82310 ==

== ENCOUNTER → 2018-07-25 | Outpatient (CLI) | payer MEDICARE, OTHER | LOC: OD 10:58 | PROVIDERS: ATTEND Surgery | DX: E89.2 Postprocedural hypoparathyroidism (principal); E83.51 Hypocalcemia | CPT/HCPCS: 36415; 82310; 83970 ==

== ENCOUNTER → 2018-08-19 | Outpatient (CLI) | payer MEDICARE, OTHER ==
--- NOTE | 2018-08-19 12:47 | RADIOLOGY REPORT (SQ) ---
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 NUMBER OF VIEWS: Five views including obliques. TECHNIQUE: AP, lateral, oblique, and sacral radiographic images acquired of the lumbar spine. LIMITATIONS: None. FINDINGS: MINERALIZATION: Normal. SEGMENTATION: Normal. No transitional anatomy. ALIGNMENT: Mild levoscoliosis in the upper lumbar spine. VERTEBRAE: Maintained height. No fracture or worrisome bone lesion. DISCS: Disc spaces are narrowed from L4-S1. POSTERIOR ELEMENTS: Hypertrophic facet changes at multiple levels. HARDWARE: None in the spine. PARASPINAL SOFT TISSUES: Normal. PELVIS: Intact as visualized. No fractures or worrisome bone lesions. SI joints intact. OTHER: No other significant finding. IMPRESSION: Scoliosis, degenerative disc disease, facet arthropathy. TECHNICAL DOCUMENTATION: JOB ID: [id number] [employer]- All Rights Reserved Reading location - IP/workstation name: [email or web address]
== END ==
LOC: OD 12:01
PROVIDERS: ATTEND Anesthesiology Pain Medicine
DX: M96.1 Postlaminectomy syndrome, not elsewhere classified (principal); M47.817 Spondylosis without myelopathy or radiculopathy, lumbosacral region; G89.4 Chronic pain syndrome; M51.36 Other intervertebral disc degeneration, lumbar region
CPT/HCPCS: 72110

== ENCOUNTER 2018-08-20 10:15 | Day surgery (SDC) | payer MEDICARE, OTHER ==
[~2018-08-20 10:15] MED LIST changes: -CEFAZOLIN 1 GM/D5W RTU 1 GM/50 ML RTUPB IV PRN; +KETOROLAC TROMETHAMINE 0.45% 4 DROP/0.4 ML DROPERETTE OD PRN; -LACTATED RINGERS 1000 ML IV PRN; -LIDOCAINE 0.5% INJ-PF (5 MG/ML) 50 ML SDV SUBCUT PRN
[2018-08-20] MEDS: TETRACAINE HCL 0.5% OPH SOLN 0.6 ML DROPERETTE OD PRN ×4 (11:32→11:58)
[2018-08-20] MEDS: TROPICAMIDE 1% OPH SOLN 3 ML OD PRN ×3 (11:32→11:55)
[2018-08-20] MEDS: BESIFLOXACIN HCL 0.6% OPH SUSP 5 ML BOTTLE OD PRN ×4 (11:32→12:18)
[2018-08-20] MEDS: CYCLOPENTOLATE 0.2%/PHENYLEPHRINE 1% OPH SOLN 2 ML OD PRN ×3 (11:32→11:55)
[2018-08-20] MEDS ORDERED: MIDAZOLAM 2 MG/2 ML INJ ONE (11:44)
[2018-08-20] MEDS: EPINEPHRINE INJ/PF 1 MG/1 ML AMPULE ONE ×2 (12:08)
[2018-08-20] MEDS: CHONDR SU A NA/HYALUR INTRAOC KIT (SURGICARE) ONE ×2 (12:08)
[2018-08-20] MEDS: LIDOCAINE 1% INJ-PF (10 MG/ML) 30 ML SDV ONE ×2 (12:08)
[2018-08-20] MEDS: TOBRAMYCIN SULFATE/DEXAMETH OPH OINTMENT 3.5 GM ONE ×2 (12:18)
== END 2018-08-20 13:00 | disposition home or self-care (01) ==
LOC: SC 10:15
PROVIDERS: ATTEND Ophthalmology
DX: H25.11 Age-related nuclear cataract, right eye (principal); I10 Essential (primary) hypertension; E03.9 Hypothyroidism, unspecified; I25.2 Old myocardial infarction; I48.91 Unspecified atrial fibrillation; E21.3 Hyperparathyroidism, unspecified; G62.9 Polyneuropathy, unspecified; R00.0 Tachycardia, unspecified; I20.9 Angina pectoris, unspecified; D49.7 Neoplasm of unspecified behavior of endocrine glands and other parts of nervous system; Z79.01 Long term (current) use of anticoagulants; Z79.899 Other long term (current) drug therapy
CPT/HCPCS: 66984; V2632; J2250; J3490 ×3; A9270; J0171; 142

== ENCOUNTER 2018-09-03 07:52 | Day surgery (SDC) | payer MEDICARE, OTHER ==
[~2018-09-03 07:52] MED LIST changes: +BUPIVACAINE HCL 0.75% INJ/PF (7.5 MG/1 ML) 10 ML SDV OS PRN; +CHONDR SU A NA/HYALUR INTRAOC KIT (SURGICARE) ONE; +DORZOLAMIDE HCL 2%/TIMOLOL MALEAT 0.5% OPH SOLN 10 ML OS PRN; +EPINEPHRINE INJ/PF 1 MG/1 ML AMPULE ONE; -KETOROLAC TROMETHAMINE 0.45% 4 DROP/0.4 ML DROPERETTE OD PRN; +KETOROLAC TROMETHAMINE 0.45% 4 DROP/0.4 ML DROPERETTE OS PRN; +LIDOCAINE 1% INJ-PF (10 MG/ML) 30 ML SDV ONE; +LIDOCAINE 4% INJ/PF (40 MG/ML) 5 ML AMPUL OS PRN
[2018-09-03] MEDS: BESIFLOXACIN HCL 0.6% OPH SUSP 5 ML BOTTLE OS PRN ×4 (08:28→09:30)
[2018-09-03] MEDS: CYCLOPENTOLATE 0.2%/PHENYLEPHRINE 1% OPH SOLN 2 ML OS PRN ×4 (08:28→08:48)
[2018-09-03] MEDS: TROPICAMIDE 1% OPH SOLN 3 ML OS PRN ×4 (08:28→08:48)
[2018-09-03] MEDS: TETRACAINE HCL 0.5% OPH SOLN 0.6 ML DROPERETTE OS PRN ×3 (08:29→09:12)
[2018-09-03] MEDS ORDERED: MIDAZOLAM 2 MG/2 ML INJ ONE (09:15)
[2018-09-03] MEDS: TOBRAMYCIN SULFATE/DEXAMETH OPH OINTMENT 3.5 GM ONE ×2 (09:24→09:30)
== END 2018-09-03 10:30 | disposition home or self-care (01) ==
LOC: SC 07:52
PROVIDERS: ATTEND Ophthalmology
DX: H25.12 Age-related nuclear cataract, left eye (principal); Z98.41 Cataract extraction status, right eye; I10 Essential (primary) hypertension; E03.9 Hypothyroidism, unspecified; I25.2 Old myocardial infarction; E21.3 Hyperparathyroidism, unspecified; I48.91 Unspecified atrial fibrillation; G62.9 Polyneuropathy, unspecified; R00.0 Tachycardia, unspecified; K21.9 Gastro-esophageal reflux disease without esophagitis; I20.9 Angina pectoris, unspecified; Z95.0 Presence of cardiac pacemaker; Z79.891 Long term (current) use of opiate analgesic; Z79.01 Long term (current) use of anticoagulants; Z79.899 Other long term (current) drug therapy
CPT/HCPCS: 66984; V2632; J2250; J3490 ×3; A9270; J0171; 142

== ENCOUNTER → 2018-09-22 | Outpatient (CLI) | payer MEDICARE, OTHER ==
--- NOTE | 2018-09-22 16:07 | WOMENS IMAGING REPORT ---
EXAM DESCRIPTION: 3D SCREENING MAMMO BILAT COMPLETED DATE/TIME: 09/22/2018 2:22 pm REASON FOR STUDY: Z12.31 ROUTINE 3D BILATERAL SCREENING Z12.31 ENCNTR SCREEN MAMMOGRAM FOR MALIGNAN T NEOPLASM OF DRISS COMPARISON: 2011, 2012 EXAM PARAMETERS: Views: Standard craniocaudal and mediolateral oblique views of each breast recorded using digital acquisition and breast tomosynthesis. Read with the assistance of CAD. .FORMER[facility] - [employer] Operations Assistant Version 9.2 LIMITATIONS: Battery pack left. FINDINGS: No suspicious masses, suspicious calcifications or architectural distortion. No areas of c oncern. IMPRESSION: NEGATIVE MAMMOGRAM. BIRADS 1. BREAST DENSITY: b. There are scattered areas of fibroglandular density. BIRAD: ASSESSMENT: 1 NEGATIVE RECOMMENDATION: ROUTINE SCREENING COMMENT: The patient has been notified of the results by letter per MQSA requirements. Additional no tification policies are in place for contacting patient with suspicious or incomplete findings. Quality ID #225: The [employer] recommends an annual screening mammogram for women aged 40 years or over. This facility utilizes a reminder system to ensure that all patients receive reminder letters, and/or direct phone calls for appointments. This includes reminders for routine scr eening mammograms, diagnostic mammograms, or other Breast Imaging Interventions when appropriate. Th is patient will be placed in the appropriate reminder system. TECHNICAL DOCUMENTATION: FINDING NUMBER: (1) ASSESSMENT: (1) JOB ID: [id number] [employer]- All Rights Reserved Reading location - IP/workstation name: [email or web address]
== END ==
LOC: WI 11:01
PROVIDERS: ATTEND Internal Medicine
DX: Z12.31 Encounter for screening mammogram for malignant neoplasm of breast (principal)
CPT/HCPCS: 77063; 77067